=== PATIENT | male | born 1980 | race Caucasian/White ===

== ENCOUNTER 2016-10-12 22:59 | Emergency (ER) | payer OTHER ==
--- NOTE | ~2016-10-12 | ER ---
PATIENT'S NAME: JAMAICABHAVIN SAMANIEGO [facility] AGE: 36 Y [address] ROOM: [place] [id number] LOCATION: [facility] ADMIT DATE: 10/12/2016 ER/Outpatient Report DISCHARGE DATE: 10/13/2016 FAMILY PHYSICIAN: PHYSICIAN, NO ATTENDING PHYSICIAN: Farhat Barros Time of Arrival: 2306 hours. Time of Evaluation: 2306 hours. CHIEF COMPLAINT: Injury to foot. HISTORY OF PRESENT ILLNESS: The patient reports he was walking in his backyard when a piece of wood from [employer] stuck him in his right foot. It went in between the second and third toe. He did pull it out. He reports that it was bleeding initially and did stop. He has sharp pain, it is worse with walking. PAST MEDICAL HISTORY: Hypertension and detached retina. PAST SURGICAL HISTORY: Appendectomy and colonoscopy. SOCIAL HISTORY: The patient denies any tobacco use. Reports social alcohol use. Denies any illicit drug use. ALLERGIES: NO KNOWN DRUG ALLERGIES. MEDICATIONS: Please see list. PRIMARY CARE DOCTOR: None. REVIEW OF SYSTEMS: All systems are reviewed by myself and are negative with the exception of those discussed in the HPI and past medical history. PHYSICAL EXAMINATION: VITAL SIGNS: Blood pressure 156/96, pulse 93, respiratory rate 16, temperature 98.9, and oxygen saturation 95% on room air. GENERAL: The patient is a 36-year-old male, who appears at stated age, in no PATIENT'S NAME: JAMAICABHAVIN SAMANIEGO [facility] AGE: 36 Y [address] ROOM: [place] [address] LOCATION: [facility] ADMIT DATE: 10/12/2016 ER/Outpatient Report DISCHARGE DATE: 10/13/2016 FAMILY PHYSICIAN: PHYSICIAN, NO ATTENDING PHYSICIAN: Farhat Barros acute distress at this time. HEENT: Head: Normocephalic, atraumatic. Pupils are equal, round, and reactive to light. NECK: Supple. There is no nuchal rigidity. CARDIOVASCULAR: Regular rate and rhythm. No murmurs, rubs, or gallops. LUNGS: Clear to auscultation. ABDOMEN: Soft, nontender. MUSCULOSKELETAL: The patient does have full range of motion. SKIN: The patient does have a puncture wound between the second and third toe of his right foot. There is some ecchymosis noted at the base of the toes. LABORATORY DATA AND X-RAYS: Three-view x-ray of the foot is obtained. There is no evidence of foreign body noted. No fracture. IMPRESSION: 1. Right foot puncture wound. 2. Initial visit. EMERGENCY DEPARTMENT COURSE: The patient is brought back to the examination room. Seen and evaluated by myself. X-rays obtained as described above. The patient's tetanus is updated. I have discussed results of the x-ray imaging with the patient. I have recommended antibiotics. I have written a prescription for Keflex for prophylactic antibiotic coverage. I have discussed [id number] instructions including worsening of symptoms or any other concerns to return to the emergency department as soon as possible. I have asked that he follow up with a primary care doctor, we have discussed different options in [place], in 2 to 3 days for re-evaluation. The patient is agreeable. He is without further questions at this time. DISPOSITION: The patient is discharged to home in good condition. DO DORENE SIMPSON/aliyah /[id number] d: 10/13/16910 t: 10/13/16 1933, OUTPATIENT REPORT
== END 2016-10-13 00:31 | disposition disaster alternative care site (69) ==
LOC: GACC 22:59
DX: S91.134A Puncture wound without foreign body of right lesser toe(s) without damage to nail, initial encounter (principal); I10 Essential (primary) hypertension; Z98.890 Other specified postprocedural states; Z23 Encounter for immunization; Z79.899 Other long term (current) drug therapy; Z90.49 Acquired absence of other specified parts of digestive tract; W26.8XXA Contact with other sharp object(s), not elsewhere classified, initial encounter; Y93.01 Activity, walking, marching and hiking; Y92.096 Garden or yard of other non-institutional residence as the place of occurrence of the external cause